=== PATIENT | male | born 1985 | race Caucasian/White ===

== ENCOUNTER 2017-09-25 19:15 | Emergency (ER) | payer OTHER ==
[~2017-09-25] VITALS: Ht 180.3 cm; Wt 62.1 kg
[~2017-09-25 19:15] MED LIST: ALPRAZOLAM; BUPROPION; CELEXA20 MG PO; DEPAKOTE; FLEXERIL PO; KLONOPIN1 MG PO; LATUDA40 MG PO; SUBOXONE 4 MG-1 EACH SUBLING
[2017-09-25 20:23] LABS: ABSOLUTE BASOPHILS 0.1 thou/uL (0.0-0.2); ABSOLUTE EOSINOPHILS 0.1 thou/uL (0.0-0.7); ABSOLUTE LYMPHOCYTES 1.7 thou/uL (0.8-5.3); ABSOLUTE MONOCYTES 0.9 thou/uL (0.0-1.2); BASOPHILS 0.4 %; EOSINOPHILS 0.8 %; HEMATOCRIT 39.7 % (42.0-52.0); HEMOGLOBIN 13.7 gm/dL (14.0-18.0); LYMPHOCYTES 14.2 %; MCH 31.9 pg (26.0-34.0); MCHC 34.4 g/dL (28.0-37.0); MCV 92.8 fL (80.0-100.0); MONOCYTES 7.6 %; MPV 8.1 fl. (7.2-11.1); NUCLEATED RBCS 0 /100WBC; PLATELET COUNT* 198 thou/uL (150-400); RBC 4.28 mil/uL (4.50-6.00); RDW-CV 13.1 % (10.5-14.5); WBC 11.7 thou/uL (4.0-11.0)
[2017-09-25] MEDS ORDERED: KEFLEX500 M1 PO (20:36)
[2017-09-25] MEDS ORDERED: BACTRIM DS TAB1 EACH PO (20:36)
[2017-09-25 20:42] LABS: CALCIUM 7.7 mg/dL (8.5-10.1)
[2017-09-25 20:44] LABS: POTASSIUM 2.9 mmol/L (3.5-5.1)
[2017-09-25 20:47] LABS: ALBUMIN 3.8 g/dL (3.4-5.0); TOTAL BILIRUBIN 0.4 mg/dL (<0.1-1.0); TOTAL PROTEIN 7.4 g/dL (6.4-8.2)
[2017-09-25] MEDS ORDERED: K-DUR 20 MEQ T20 MEQ PO (20:50)
[2017-09-25 21:18] VITALS: BP 134/80
== END 2017-09-25 21:26 | disposition home or self-care (01) ==
LOC: M.ERS 19:15
PROVIDERS: Nurse Practitioner Family
DX: L02.416 Cutaneous abscess of left lower limb (principal); L03.116 Cellulitis of left lower limb; E87.6 Hypokalemia; F31.9 Bipolar disorder, unspecified; F41.9 Anxiety disorder, unspecified; F17.210 Nicotine dependence, cigarettes, uncomplicated

== ENCOUNTER 2020-05-25 22:37 | Observation (INO) | payer OTHER ==
[~2020-05-25] VITALS: Ht 180.3 cm; Wt 67.0 kg
[~2020-05-25 22:37] MED LIST changes: +BACTRIM DS TAB1 EACH PO; +K-DUR 20 MEQ T20 MEQ PO; +KEFLEX500 M1 PO
[2020-05-25 22:39] VITALS: BP 109/53
[2020-05-25 22:55] LABS: HEMATOCRIT 42.1 % (42.0-52.0); MCH 31.2 pg (26.0-34.0); MCHC 33.3 g/dL (28.0-37.0); MCV 93.6 fL (80.0-100.0); MPV 7.7 fl. (7.2-11.1); RBC 4.49 mil/uL (4.50-6.00); RDW-CV 13.3 % (10.5-14.5); WBC 10.6 thou/uL (4.0-11.0)
[2020-05-25 22:58] LABS: URINE BILIRUBIN NEGATIVE (Negative); URINE BLOOD NEGATIVE (Negative); URINE CLARITY CLEAR; URINE COLOR YELLOW; URINE GLUCOSE-RANDOM NEGATIVE (Negative); URINE KETONES NEGATIVE (Negative); URINE LEUKOCYTES NEGATIVE (Negative); URINE NITRITE NEGATIVE (Negative); URINE PROTEIN NEGATIVE (Negative); URINE SPECIFIC GRAVITY >= 1.030 (1.005-1.030); URINE UROBILINOGEN 0.2 E.U./dl (0.2-1.0)
[2020-05-25 22:58] LABS: CALCIUM 7.2 mg/dL (8.5-10.1); CREATININE 1.4 mg/dL (0.6-1.3)
[2020-05-25 23:02] LABS: POTASSIUM 2.8 mmol/L (3.5-5.1)
[2020-05-25 23:03] LABS: ALBUMIN 3.9 g/dL (3.4-5.0); TOTAL BILIRUBIN 0.5 mg/dL (<0.1-1.0)
[2020-05-25 23:05] LABS: AMP/METHAMP Negative (Negative); BARBITURATES Negative (Negative); BENZODIAZEPINES POSITIVE (Negative); COCAINE Negative (Negative); METHADONE POSITIVE (Negative); OPIATES Negative (Negative); PCP Negative (Negative); THC Negative (Negative)
[2020-05-25 23:46] LABS: SALICYLATE < 2.8 mg/dL (2.8-20.0)
[2020-05-25 23:49] LABS: ACETAMINOPHEN < 2 ug/mL (10-30); ALCOHOL < 10 mg/dL (<10)
[2020-05-26 01:50] VITALS: BP 100/49
[2020-05-26 01:59] VITALS: BP 100/48
--- NOTE | 2020-05-26 04:51 | NUR ---
RECEIVED PT FROM ED PER CART. PT IS LETHARGIC BUT WAKES UP WHEN NAME IS CALLED. PT IS ABLE TO ANSWER SOME SIMPLE QUESTIONS BUT FALLS RIGHT BACK TO SLEEP AFTER. ADMISSION ASSESSMENTS DONE CHARTED, SOME INFORMATION NOT OBTAINED PT IS TO LETHARGIC TO ANSWER. SEIZURE PRECAUTIONS IN PLACE. HOURLY ROUNDNG DONE FOR PT SAFETY. HIGH FALL PRECAUTIONS IN PLACE. CALL LIGHT WITHIN REACH.
[2020-05-26 08:00] VITALS: BP 114/57
[2020-05-26 11:53] VITALS: BP 100/48
--- NOTE | 2020-05-26 13:31 | 2DMMODE ---
[place] [address] 2 D/M-MODE ECHOCARDIOGRAM Name: UZMA FISHER Room: [address] Antione MShyanne#: [id number] Admission: 05/26/20 Attend Phys: Nemesio Vargas Discharge: Date of : 89 Date of Service: 05/26/20 1330 Report #: [id number] THIS REPORT FOR: cc: FAM - No family physician/PCP FAM - No family physician/PCP Bang Serrano MD [facility] ~ APPROVED REPORT Study performed: 05/26/2020 10:27:01 EXAM: Comprehensive 2D, Doppler, and color-flow Echocardiogram Patient Location: In-Patient Room #: [facility] Status: routine BSA: 1.85 HR: 76 bpm BP: 100/48 mmHg Rhythm: NSR Other Information Study Quality: Good Indications post cardiac arrest, seizures 2D Dimensions IVSd: 7.49 (7-11mm) LVOT Diam: 20.17 (18-24mm) LVDd: 50.36 mm PWd: 10.18 (7-11mm) Ascending Ao: 25.72 (22-36mm) LVDs: 32.10 (25-40mm) Aortic Root: 27.16 mm Volumes Left Atrial Volume (Systole) LA ESV Index: 26.50 mL/m2 Aortic Valve AoV Peak Esequiel.: 1.34 m/s AO Peak Gr.: 7.16 mmHg LVOT Max P.97 mmHg AO Mean Gr.: 3.85 mmHg LVOT Mean P.72 mmHg LVOT Max V: 1.41 m/s AO V2 VTI: 23.02 cm LVOT Mean V: 0.88 m/s ALVIN (VTI): 3.48 cm2 LVOT V1 VTI: 25.05 [place] [address] 2 D/M-MODE ECHOCARDIOGRAM Name: UZMA FISHER [address]#: [id number] Admission: 05/26/20 Attend Phys: Nemesio Vargas Discharge: Date of : 89 Date of Service: 05/26/20 1330 Report #: [id number] Mitral Valve E/A Ratio: 1.42 MV Decel. Time: 120.17 ms MV E Max Esequiel.: 0.76 m/s MV PHT: 34.85 ms MVA (PHT): 6.31 cm2 TDI E/Lateral E': 3.17 E/Medial E': 4.22 Medial E' Esequiel.: 0.18 m/s Lateral E' Esequiel.: 0.24 m/s Pulmonary Valve PV Peak Esequiel.: 1.31 m/s PV Peak Gr.: 6.84 mmHg Left Ventricle The left ventricle is normal size. There is normal LV segmental wall motion. There is normal left ventricular wall thickness. Left ventricular systolic function is normal. LVEF is 60-65%. The left ventricular diastolic function is normal. Right Ventricle Right ventricle is mildly dilated. The right ventricular systolic function is normal. Atria The left atrium size is normal. The right atrium size is normal. Aortic Valve The aortic valve is normal in structure. No aortic regurgitation is present. There is no aortic valvular stenosis. Mitral Valve The mitral valve is normal in structure. Trace mitral regurgitation. No evidence of mitral valve stenosis. Tricuspid Valve The tricuspid valve is normal in structure. Trace tricuspid regurgitation. Pulmonic Valve The pulmonary valve is normal in structure. Trace pulmonic regurgitation[place] [address] 2 D/M-MODE ECHOCARDIOGRAM Name: UZMA FISHER Room: [address] Brett#: [id number] Admission: 05/26/20 Attend Phys: Nemesio Vargas Discharge: Date of : 89 Date of Service: 05/26/20 1330 Report #: [id number] The aortic root is normal in size. IVC is normal in size and collapses >50% with inspiration. Pericardium There is no pericardial effusion. <Conclusion> The left ventricle is normal size. There is normal left ventricular wall thickness. Left ventricular systolic function is normal. LVEF is 60-65%. The left ventricular diastolic function is normal. Right ventricle is mildly dilated. Trace mitral regurgitation. Trace tricuspid regurgitation. IVC is normal in size and collapses >50% with inspiration. <ELECTRONICALLY SIGNED> By: Bang Serrano MD, FACC 05/26/20 1330 Bang Serrano MD, FACC /INF
--- NOTE | 2020-05-26 13:46 | NUR ---
Pt asleep, spoke with Pt's mom via phone. Pt is currently residing with his parents. A&O. Independent. No DME. No hx of HH or SNF. Med Assist screened, Pt does not qualify for [facility]. CM to discuss setting Pt up with a PCP appt at [facility] [place] Anticipate [place] tomorrow. Following.
[2020-05-26 16:26] VITALS: BP 101/49
--- NOTE | 2020-05-26 16:28 | EKG ---
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 : 1985 Requested By: Katherine Fowler Order Number: [id number] MD: Juwan Barron Measurements Intervals [place] Rate: 97 P: 79 RI: 174 QRS: 88 QRSD: 114 T: 33 QT: 356 QTc: 452 Interpretive Statements Sinus rhythm Biatrial enlargement Borderline intraventricular conduction delay No previous ECG available for comparison Electronically Signed On 05-26-2020 16:27:57 CRITICAL CARE NURSE PRACTITIONER by Juwan Barron [email or web address] <ELECTRONICALLY SIGNED> By: Juwan Barron MD, [facility] 05/26/207 36 36 Juwan Barron MD, FAC /EPI
--- NOTE | 2020-05-26 16:33 | EKG ---
[place] [address] ELECTROCARDIOGRAM REPORT Name: UZMA FISHER Room: [address] M.R.#: [id number] Admission: 05/26/20 Attend Phys: Nemesio Vargas Discharge: Date of : 89 Date of Service: 05/26/20 1342 Report #: [id number] THIS REPORT FOR: //name// [facility] Test Date: 2020-05-26 Test Time: 13:42:52 Pat Name: UZMA FISHER Department: Room: [address] Gender: M Seismic Interpreter: : 1985 Requested By: Nemesio Vargas Order Number: [id number] Reading MD: Juwan Barron Measurements Intervals [place] Rate: 74 P: 83 [place]: 166 QRS: 87 QRSD: 111 T: 65 QT: 387 QTc: 430 Interpretive Statements Sinus rhythm Consider right atrial enlargement ST elev, probable normal early repol pattern Compared to ECG 02/17/2017 07:31:08 ST (T wave) deviation now present Prolonged QT interval no longer present Electronically Signed On 05-26-2020 16:33:42 MEDICAL APPLIANCE MAKER by Juwan Barron [email or web address] <ELECTRONICALLY SIGNED> By: Juwan Barron MD, FACC 05/26/20 1633 1342 1342 Juwan Barron MD, FACC /EPI
--- NOTE | 2020-05-26 18:55 | NUR ---
RECEIVED REPORT. ASSUMED CARE OF PT AROUND 729. PT A&O X4 BUT SLEEPY. AWAKENS TO VOICE. AM ASSESSMENT AND VITALS COMPLETED CHARTED. CARDAIC MONITOR IN PLACE. MEDS PER EMAR. IVF INFUSING. EEG, ECHO AND CT OF C SPINE ALL DONE TODAY. MRI DECLINED BY DR LIZAMA OF RIGHT NOW - DR LIZAMA STATED HE WOULD DISCUSS IT WITH DR GOODMAN TOMORROW. FATHER IN TO SEE PT THIS AFTERNOON. PT UP WITH SBA TO BATHROOM TO VOID. TOLERATING CLRS. PT HAS SLEPT MOST OF THE DAY. PT CURRENTLY RESTING IN BED. CALL LIGHT IS WITHIN REACH. HOURLY ROUNDING PERFORMED. FALL PRECAUTIONS IN PLACE.
[2020-05-26 20:00] VITALS: BP 91/45
[2020-05-27 00:48] VITALS: BP 100/50
[2020-05-27 04:00] VITALS: BP 110/55
--- NOTE | 2020-05-27 05:08 | NUR ---
ASSUMED PT CARE AT APPROX 1930. PT IS SLEEPING BUT AWAKENS WHEN CALLED. PT IS ORIENTED X4. PT IS NOT IN DISTESS. BOX SORTER IS TRACING SR. NO ACUTE CHANGES THIS SHIFT. CALL LIGHT WITHIN REACH. FALL AND SEIZURE PRECAUTIONS IN PLACE. CALL LIGHT WITHIN REACH.
[2020-05-27 08:00] VITALS: BP 116/64
[2020-05-27 12:18] VITALS: BP 128/53
[2020-05-27 15:21] VITALS: BP 128/53
--- NOTE | 2020-05-27 16:00 | NUR ---
RECEIVED REPORT. ASSUMED CARE OF PT AROUND 729. PT A&O X4. AM ASSESSMENT AND VITALS COMPLETED CHARTED, MEDS PER EMAR. PT MUCH MORE AWAKE AND ALERT THAN YESTERDAY. STATES HE FEELS "BACK TO NORMAL". NEURO ROUNDED AND SIGNED OFF. CARDIOLOGY SIGNED OFF. DISCHARGE ORDERS RECEIVED. DISCHARGE COMPLETED DOCUMENTED. PT AWARE TO F/U WITH NEUROLOGY, TO NOT DRIVE FOR 6MO AND TO NOT WORK AT HIGH UP IN THE AIR. IV AND MEETING SPECIALIST REMOVED. ALL BELONGINGS GATHERED AND SENT HOME WITH PT. PT LEFT UNIT IN WC WITH NURSING STAF.. PT LEFT HOSPITAL IN CAR WITH FATHER.
[2020-05-27] MEDS ORDERED: NARCAN4 MG NARES (17:48)
--- NOTE | 2020-06-02 13:46 | CON ---
[address] [address] CONSULTATION Name: UZMA FISHER Room: [address] Antione West#: [id number] Admission: 05/26/20 Attend Phys: Иван Red Discharge: 05/27/20 Date of : 89 Report #: [id number] THIS REPORT FOR: //name// cc: FAM - No family physician/PCP FAM - No family physician/PCP ~ DATE OF SERVICE: 05/26/2020 HISTORY OF PRESENT ILLNESS: This is a 34-year-old male patient who was evaluated by me for the seizure. The history is pretty poor and part of it is from the record and it looks like the patient was found unconscious on the ground. They did even CPR. I am not certain whether it was just a respiratory arrest or whether he had some cardiac arrest. He was given Narcan and I am not sure if it made that much difference. He has a longstanding history of opiate abuse. He said he never had much pain, just got addicted to that. He denies the use of methadone, but his urine drug screen is positive for methadone. Drug screen is also positive for benzodiazepines, but that may be just because the patient received some benzodiazepines on the same. REVIEW OF SYSTEMS: A 14-point review of system was carried out. The patient looks like it is seizure. His CPK is high. He has tongue biting, no firsthand description is available. When he was brought in here his calcium was pretty low. His GFR is normal in spite of his high CPK. It is somewhat less than his baseline. He is getting fluids. He feels back to his baseline. He is complaining of the chest pain. However, he has no headache, no spine problem or any other pain. A 14-point review of system was otherwise noncontributory. PAST MEDICAL HISTORY: Positive for drug abuse. FAMILY HISTORY: Unremarkable. SOCIAL HISTORY: He has a history of drug abuse, but he says he does not drink alcohol on a regular basis. PHYSICAL EXAMINATION: Indicate he is alert. He is responsive. He can follow simple and complex command. His speech, concentration, fund of knowledge and memory is at his baseline. His cranial nerve examination 2-12 looks mostly unremarkable. His strength, sensation, reflexes and tone is symmetrical. His both plantars are classically downgoing. There is no meningeal sign. There is no carotid bruit in this patient. Cardiorespiratory examination is unremarkable. Blood pressure is 100/48, pulse is 78, temperature 98.8. IMPRESSION: This patient appeared to have a history of seizure. I am not sure what the etiology is, if the patient did not take drugs. I suggested getting an MRI of the brain and EEG in this patient. I ordered both of them. I ordered the MRI of the brain with and without contrast. I discussed with him potential side effect of the contrast including irreversible [place] [address] CONSULTATION Name: UZMA FISHER Room: [address] LAKISHA West#: [id number] Admission: 05/26/20 Attend Phys: Иван Red Discharge: 05/27/20 Date of : 89 Report #: [id number] contrast reaction. He understands that and he wants to proceed with that. We will go ahead and arrange that. When I was walking out of it he said he is having some neck pain. Since he was found unresponsive and is complaining of some neck pain I will go ahead and do the CT of the C-spine to make sure there is no other etiology. Dr. Victoria will follow up this patient with you from tomorrow and we will await for the MRI and an EEG says and decide about going or not going on anticonvulsant. It does not matter what happened he still needs to take seizure precautions. He cannot drive for at least 6 months and cannot work near moving machinery, on the heights or any place where he can hurt himself if he has another seizure. That was frankly discussed with him and he understands that. Thank you very much for this referral. <ELECTRONICALLY SIGNED> By: Virgil Key MD 06/02/20 1346 1502 [id number] Key MD /nt
== END 2020-05-27 16:00 | disposition home or self-care (01) ==
LOC: M.ERS → M.TBA-ER 05-26 01:01 → M.2W 05-26 01:50
PROVIDERS: Personal Emergency Response Attendant; ADMIT Internal Medicine; ATTEND Internal Medicine
DX: G93.1 Anoxic brain damage, not elsewhere classified (principal); I46.9 Cardiac arrest, cause unspecified; T40.3X1A Poisoning by methadone, accidental (unintentional), initial encounter; I21.A1 Myocardial infarction type 2; G40.909 Epilepsy, unspecified, not intractable, without status epilepticus; F15.90 Other stimulant use, unspecified, uncomplicated; E87.6 Hypokalemia; Z79.899 Other long term (current) drug therapy; Z20.828 Contact with and (suspected) exposure to other viral communicable diseases; Y92.89 Other specified places as the place of occurrence of the external cause